=== PATIENT | female | born 1965 | race Caucasian/White ===

== ENCOUNTER 2018-06-10 09:30 | Inpatient (IN) | payer OTHER ==
[~2018-06-10] VITALS: Ht 162.6 cm; Wt 72.6 kg
[2018-06-16] MEDS ORDERED: SYNTROID PO (14:21)
[2018-06-16] MEDS ORDERED: NORVASC2.5 M1 PO (14:21)
[2018-06-16] MEDS ORDERED: [UNRECOGNIZED DRUG - OTHER] PO (14:22)
[2018-06-16] MEDS ORDERED: WELLBUTRIN XL300 MG PO (14:22)
[2018-06-16] MEDS ORDERED: AMBIEN10 MG PO (14:23)
[2018-06-16] MEDS ORDERED: LAMISTAL PO (14:23)
[2018-06-16] MEDS ORDERED: LATUDA PO (14:24)
[2018-06-17] MEDS ORDERED: LAMICTAL200 M1 PO (08:32)
[2018-06-17] MEDS ORDERED: SYNTHROID125 MCG PO (08:32)
[2018-06-17] MEDS ORDERED: LATUDA60 MG PO (08:35)
[2018-06-18] MEDS ORDERED: GABAPENTIN800 MG PO (12:02)
[2018-06-18] MEDS ORDERED: DOCUSATE SODIU100 MG PO (12:03)
[2018-06-18] MEDS ORDERED: AMOX-CLAV 875-1 EACH PO (12:04)
[2018-06-18] MEDS ORDERED: PERCOCET 5-3251 EACH PO (12:05)
[2018-06-18] MEDS ORDERED: CLONAZEPAM0.5 M1 PO (12:05)
== END 2018-06-18 19:11 | disposition home or self-care (01) | DRG 455 ==
LOC: SURG 06-17 05:30 → O/R 06-17 05:30 → SURG 06-17 14:13 → O/R 06-17 15:15 → SURG 06-18 19:11
PROVIDERS: ADMIT Orthopaedic Surgery Orthopaedic Surgery of the Spine
PROC: 0SG3071 Fusion of Lumbosacral Joint with Autologous Tissue Substitute, Posterior Approach, Posterior Column, Open Approach (ICD-10-PCS; 2018-06-17)
PROC: 00NY0ZZ Release Lumbar Spinal Cord, Open Approach (ICD-10-PCS; 2018-06-17)
PROC: 0ST40ZZ Resection of Lumbosacral Disc, Open Approach (ICD-10-PCS; 2018-06-17)
PROC: 07DS3ZZ Extraction of Vertebral Bone Marrow, Percutaneous Approach (ICD-10-PCS; 2018-06-17)
PROC: 0SG30AJ Fusion of Lumbosacral Joint with Interbody Fusion Device, Posterior Approach, Anterior Column, Open Approach (ICD-10-PCS; principal; 2018-06-17 13:15)
DX: M47.27 Other spondylosis with radiculopathy, lumbosacral region (principal); M51.17 Intervertebral disc disorders with radiculopathy, lumbosacral region